=== PATIENT | female | born 1985 | race American Indian/Alaskan Native ===

== ENCOUNTER 2021-10-29 14:54 | Emergency (ER) | payer SELFPAY ==
[2021-10-29 17:32] VITALS: BP 139/88
--- NOTE | 2021-10-29 22:04 | Emergency Department Report ---
- General Chief complaint: Skin Rash Stated complaint: INSECT BITE Time Seen by Provider: 10/29/21 21:41 Source: patient Mode of arrival: Ambulatory Limitations: No Limitations - History of Present Illness MD complaint: insect bite/sting -: Gradual, days(s) (4) Location: face Severity: mild Quality: aching, dull Consistency: constant Improves with: topical medication, medication Context: other (Suspected insect bite to the left cheek to her face about 4 days ago which was followed by green scab-like discharge which she removed and cleaned with peroxide and began treating with [id number]-[id number] Benadryl and bite cream reports an improvement since the onset. Does want to have it checked ) Treatments Prior to Arrival: OTC topical medication, other (Just wanted to have the wound checked to ensure no further treatment was needed as the wound has significantly improved) Abscess Boil HPI - HPI Chief Complaint: Skin Rash Stated Complaint: INSECT BITE Time Seen by Provider: 10/29/21 21:41 ED Review of Systems ROS: Stated complaint: INSECT BITE Other details as noted in HPI Comment: All other systems reviewed and negative ED Past Medical Hx - Past Medical History Previous Medical History?: No - Surgical History Past Surgical History?: No ED Physical Exam - General Limitations: No Limitations General appearance: alert, in no apparent distress - Head Head exam: Present: atraumatic, normocephalic - Expanded Head Exam Expanded 1 - Scabbing to this region with some local hyperpigmentation with mild erythema. No significant cellulitis or induration is noted. No discharge with expression of the wound wound does not communicate with the nasal or oral cavity. There is some general swelling around that region. But no signs of entrapment. No subcutaneous emphysema or lymphangitis. Ears are clear. No lymphadenopathy to the neck - Eye Eye exam: Present: normal appearance, PERRL, EOMI Pupils: Present: normal accommodation - ENT ENT exam: Present: normal exam, normal orophraynx, mucous membranes moist, TM's normal bilaterally - Neck Neck exam: Present: normal inspection, full ROM, lymphadenopathy (Neck no lymphadenopathy to the head neck face or supraclavicular region) - Respiratory Respiratory exam: Present: normal lung sounds bilaterally. Absent: respiratory distress, wheezes, rales, chest wall tenderness, accessory muscle use - Cardiovascular Cardiovascular Exam: Present: regular rate, normal rhythm. Absent: systolic murmur, diastolic murmur, rubs, gallop - GI/Abdominal GI/Abdominal exam: Present: soft, normal bowel sounds - Extremities Exam Extremities exam: Present: normal inspection - Back Exam Back exam: Present: normal inspection - Neurological Exam Neurological exam: Present: alert, oriented X3 - Psychiatric Psychiatric exam: Present: normal affect, normal mood - Skin Skin exam: Present: warm, dry, intact, normal color. Absent: rash ED Course Vital Signs 10/29/21 17:30 Temperature 98.3 F Pulse Rate 69 Respiratory 18 Rate Blood Pressure 139/88 [Left] O2 Sat by Pulse 99 Oximetry Critical care attestation.: If time is entered above; I have spent that time in minutes in the direct care of this critically ill patient, excluding procedure time. ED Disposition Clinical Impression: Insect bite Disposition: 01 HOME / SELF CARE / HOMELESS Is pt being admited?: No Does the pt Need Aspirin: No Condition: Stable Instructions: Spider Bite, Nquz-[id number]-[id number], Insect Bite, Adult, [id number] Additional Instructions: Keep wound clean as we discussed with antibacterial soap and water and continue with utilization of the [id number] medication which is helping your wound to heal Referrals: [facility] [Provider Group] - 3-5 Days
== END 2021-10-29 22:02 | disposition home or self-care (01) ==
LOC: ED 14:54
DX: S00.86XA Insect bite (nonvenomous) of other part of head, initial encounter (principal); W57.XXXA Bitten or stung by nonvenomous insect and other nonvenomous arthropods, initial encounter; Y93.89 Activity, other specified; Y92.89 Other specified places as the place of occurrence of the external cause; Y99.8 Other external cause status
CPT/HCPCS: 99282